=== PATIENT | female | born 1995 | race Caucasian/White ===

== ENCOUNTER 2018-07-22 16:33 | Inpatient (IN) ==
[2018-07-22] MEDS ORDERED: *HR* LORazepam 1 MG TABLET PO PRN (16:49)
[2018-07-22] MEDS ORDERED: Mag Hydrox/Al Hydrox/Simeth 30 ML UDC PO PRN (16:49)
[2018-07-22] MEDS ORDERED: hydrOXYzine pamoate 25 MG CAPSULE PO PRN (16:49)
[2018-07-22] MEDS ORDERED: Ibuprofen 400 MG TABLET PO PRN (16:49)
[2018-07-22] MEDS ORDERED: *HR* LORazepam 2 MG/ML VIAL IM PRN (16:49)
[2018-07-22] MEDS ORDERED: MOM Conc 10 ML UD.LIQ PO PRN (16:49)
[2018-07-22] MEDS ORDERED: Haloperidol Lactate 5 MG/ML VIAL IM PRN (16:49)
[2018-07-22] MEDS: traZODone 50 MG TABLET PO PRN (21:40)
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
[2018-07-23] MEDS: ARIPiprazole 5 MG TABLET PO SCH (14:58)
[2018-07-23] MEDS: hydrOXYzine pamoate 25 MG CAPSULE PO PRN ×2 (14:59→21:06)
[2018-07-24] MEDS: ARIPiprazole 5 MG TABLET PO SCH (08:31)
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
[2018-07-24] MEDS: traZODone 50 MG TABLET PO PRN (20:31)
[2018-07-24] MEDS: hydrOXYzine pamoate 25 MG CAPSULE PO PRN (20:31)
[2018-07-25] MEDS ORDERED: ARIPiprazole 2 MG TABLET PO SCH (09:00)
[2018-07-25 09:53] VITALS: BP 133/89
--- NOTE | 2018-07-25 10:34 | Discharge Summary ---
Date of Encounter: 07/25/18 Time of Encounter: 10:25 Diagnosis - Discharge Diagnosis (1) Mood disorder Status: Acute Medications - Discharge Medications Prescriptions: ARIPiprazole [Abilify] 2 mg PO DAILY 30 Days #30 tablet hydrOXYzine pamoate [HydrOXYzine Pamoate] 50 mg PO Q6H PRN 30 Days #60 capsule PRN Reason: Anxiety Prazosin [Minipress] 1 mg PO HS 30 Days #30 capsule Norgestimate-Ethinyl Estradiol [Sprintec 28 Day Tablet] 1 each PO DAILY 07/23/18 [History] ARIPiprazole [Abilify] 2 mg PO DAILY 30 Days #30 tablet 07/25/18 [Rx] Prazosin [Minipress] 1 mg PO HS 30 Days #30 capsule 07/25/18 [Rx] hydrOXYzine pamoate [HydrOXYzine Pamoate] 50 mg PO Q6H PRN 30 Days #60 capsule 07/25/18 [Rx] Allergy/AdvReac Type Severity Reaction Status Date / Time adhesive tape AdvReac Rash Verified 07/23/18 16:53 Provider Date of admission: 07/22/18 16:33 Primary care physician: PCP NONE Psychiatry Exam - Constitutional Vitals: Temp Pulse Resp BP Pulse Ox 97.2 F L 88 16 133/89 98 07/25/18 09:00 07/25/18 09:00 07/25/18 09:00 07/25/18 09:00 07/25/18 09:00 General appearance: age & developmentally appropriate, well-groomed, well- nourished - Musculoskeletal Gait: normal Station: relaxed Strength & Tone: normal for patient - Psychiatric Patient Orientation: Yes Person, Yes Time, Yes Place, Yes Circumstance Level of alertness: Alert Behavior: calm Psychomotor activity: Normal Eye Contact: Maintains Eye Contact Mood Description: Euthymic/stable Affect description: congruent with mood Speech Volume: Normal Speech pattern: normal rate, normal rhythm, normal tone, fluent Language & Vocabulary: consistent with education Thought Process: Intact, Logical, Linear, Goal Oriented Thought Content: Yes Intact Attention Span Ability: Capable of Focused Attention, Capable of Sustained Attention Memory Description: Grossly Intact Patient Reliability: Reliable Historian Fund of knowledge: Yes average Intelligence Estimate: Average Judgment: Good Insight: Full Hospital Course Hospital course: Ms. Boothe is a 23 year old female Does patient wish to continue nicotine replacement upon disc: No (non smoker) - Time Spent with Patient Total time spent providing and/or coordinating discharge services: 20 min Less than 30 minutes Assessment and Plan - Patient/Caregiver Discharge Instructions Activity: resume usual activities as tolerated Diet: regular diet - Follow up Plan Functional capacity at discharge: independent ambulation Overall status at discharge: Stable Disposition: Home, Self-Care Quality - Multiple Antipsychotics Patient discharged on 2 or more antipsychotic medications: No Procedures - Procedures Procedures: Medication Management, Crisis Stabilization, Supportive Therapy, Group Therapy, Psychoeducational Therapy
[2018-07-25] MEDS: hydrOXYzine pamoate 25 MG CAPSULE PO PRN (13:29)
== END 2018-07-25 13:30 | disposition home or self-care (01) | DRG 753 ==
LOC: SUATTDRO 16:33 → 1ANU 16:33
PROVIDERS: ADMIT General Practice; ATTEND Psychiatry & Neurology Psychiatry